=== PATIENT | male | born 1940 | race Caucasian/White ===

== ENCOUNTER 2018-02-01 18:00 | Observation (INO) | payer OTHER, MEDICARE ==
[~2018-02-01] VITALS: Ht 172.7 cm; Wt 73.6 kg
--- NOTE | 2018-02-01 18:24 | ED GENERAL ADULT ---
History of Present Illness General Chief Complaint: Male Genitourinary Problems Stated Complaint: BIBA CONSTIPATION AND URINARY RETENTION Source: patient Exam Limitations: poor historian Vital Signs & Intake/Output Vital Signs & Intake/Output Vital Signs Date Time Temp Pulse Resp B/P B/P Pulse O2 O2 Flow FiO2 Mean Ox Delivery Rate 02/02 0134 99.0 72 20 108/56 92 Room Air 02/02 0112 97.2 74 20 104/57 97 Room Air 02/01 2342 97 Room Air 02/01 2341 98.7 72 22 96/54 96 Room Air 02/01 2233 76 24 110/55 99 Room Air 02/01 2212 98.1 77 20 97/56 97 Room Air 02/01 2207 97.7 02/01 1840 97.7 91 22 109/66 98 Room Air 02/01/18 77-year-old male presents to the emergency department for acute urinary retention. The patient states that he has a history of BPH and also has a hemorrhoid. He was drinking lots of fluids to alleviate his constipation and he went into acute urinary retention. Now he has severe abdominal distention and is unable to pass urine for the past 12 hours. A coud catheter was paged by the ED nursing staff, and revealed 600 mL of urine. He continued to have some discomfort but had substantial relief of his pain. Allergies Coded Allergies: No Known Allergies (03/25/16) Reconcile Medications Ascorbic Acid (Vitamin C) 500 MG CAPSULE 1 CAP PO QAM SUPPLEMENT (Reported) Aspirin (Ecotrin*) 81 MG TABLET.DR 1 TAB PO QPM HEART/BLOOD (Reported) Atorvastatin Calcium (Lipitor) 20 MG TABLET 1 TAB PO QPM CHOLESTEROL ( Reported) Calcium Citrate/Vitamin D3 (Calcium Citrate-Vit D3 Tablet) 315 MG-250 UNIT TABLET 2 TAB PO QAM SUPPLEMENT (Reported) Cholecalciferol (Vitamin D3) (Vitamin D) 1,000 UNIT TABLET 1 TAB PO QAM SUPPLEMENT (Reported) Cinnamon Bark (Cinnamon) 500 MG CAPSULE 1 CAP PO QAM SUPPLEMENT (Reported) Cyanocobalamin (Vitamin B-12) 1,000 MCG TABLET 1 TAB PO QAM SUPPLEMENT ( Reported) Fluticasone/Vilanterol (Breo Ellipta 200-25 Mcg INH) 200 MCG-25 MCG/DOSE BLST.W.DEV 1 PUFF INH QAM COPD/ASTHMA (Reported) Folic Acid 0.4 MG TABLET 1 TAB PO QAM SUPPLEMENT (Reported) Gluc 2KCL/Chondr/Abbie Hy/Hy AC (Glucosamine & Chondroitin Cap) (Unknown Strength ) CAPSULE (Unknown Dose) PO QAM SUPPLEMENT (Reported) Lactobacillus Acidophilus (Probiotic) (Unknown Strength) CAPSULE (Unknown Dose ) PO QAM SUPPLEMENT (Reported) Levetiracetam (Keppra) 750 MG TABLET 1 TAB PO BID SEIZURES (Reported) Loperamide HCl (Imodium A-D) 2 MG TABLET 1 TAB PO QAM GI (Reported) Magnesium Oxide (Magnesium) 400 MG CAPSULE 1 CAP PO QAM SUPPLEMENT (Reported) Metoprolol Succ XL (Toprol XL) 25 MG TAB 0.5 TAB PO DAILY HEART/BP (Reported) Multiple Vitamin (Multivitamins) 1 EACH TABLET 1 TAB PO QAM SUPPLEMENT ( Reported) [place]-3/Dha/Epa/Fish Oil (Fish Oil 1,400 MG Softgel) 900 MG (253 MG-647 MG)-1, 400 MG CAPSULE.DR 1 SGL PO QAM SUPPLEMENT (Reported) Rivaroxaban (Xarelto) 20 MG TABLET 1 TAB PO QAM BLOOD THINNER (Reported) with food Tamsulosin HCl (Flomax) 0.4 MG CAP.ER.24H 1 CAP PO QPM (Reported) Ubidecarenone (Co Q-10) (Unknown Strength) CAPSULE (Unknown Dose) PO QAM SUPPLEMENT (Reported) Vitamin B Complex/Folic Acid (Vitamin B-50 Complex Tablet) (Unknown Strength) TABLET (Unknown Dose) PO QAM SUPPLEMENT (Reported) Triage Nurses Notes Reviewed? yes Onset: Abrupt Duration: hour(s): Timing: recent history HPI: 02/01/18 77-year-old male presents to the emergency department for acute urinary retention. The patient states that he has a history of BPH and also has a hemorrhoid. He was drinking lots of fluids to alleviate his constipation and he went into acute urinary retention. Now he has severe suprapubic abdominal pain and distention and is unable to pass urine for the past several hours. A coud catheter was paged by the ED nursing staff, and revealed 600 mL of urine. He continued to have some discomfort but had substantial relief of his pain. (Rudy Coronel DO) Past History Medical History Any Pertinent Medical History? 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 No (Rudy Coronel DO) Review of Systems Review of Systems Constitutional: Denies: fever. EENTM: Reports: no symptoms. Respiratory: Denies: short of breath. Cardiovascular: Denies: chest pain. GI: Reports: abdominal pain. Denies: vomiting. Genitourinary: Reports: no symptoms. Musculoskeletal: Reports: no symptoms. Skin: Reports: no symptoms. Neurological/Psychological: Reports: no symptoms. Hematologic/Endocrine: Reports: no symptoms. Immunologic/Allergic: Reports: no symptoms. (Rudy Coronel DO) Physical Exam Physical Exam General Appearance: well developed/nourished, alert, awake, anxious Head: atraumatic Eyes: Bilateral: normal appearance, PERRL, EOMI. Ears, Nose, Throat: normal pharynx, normal ENT inspection Neck: normal inspection, supple Respiratory: normal breath sounds Cardiovascular: regular rate/rhythm Peripheral Pulses: 4+ radial (R), 4+ radial (L) Gastrointestinal: soft, tenderness (suprapubic) Rectal: hemorrhoids, tenderness, excoriations in the perirectal area, brown stool, significant school but no impaction. Back: normal range of motion Extremities: no edema Neurologic/Psych: no motor/sensory deficits, awake, alert, oriented x 3 Skin: intact, normal color, warm/dry Core Measures ACS in differential dx? No CVA/TIA Diagnosis: No Sepsis Present: No Sepsis Focused Exam Completed? No (Rudy Coronel DO) Progress Differential Diagnoses I considered the following diagnoses in my evaluation of the patient: [Urinary retention, bowel obstruction,] Plan of Care: Orders Procedure Date/time Status Full Liquid Diet 02/02 B Active CBC WITHOUT DIFFERENTIAL 02/02 06 Active BASIC ELECTROLYTES PLUS BUN&CR 02/02 0600 Active Vital Signs 02/02 138 Active Teach/Educate 02/02 138 Active Seizure Precautions 02/02 138 Active Pain Treatment and Response 02/02 138 Active Nutritional Intake, Monitor 09/14 0138 Active Isolation 09/14 0138 Active Intake & Output 02/02 0138 Active Patient Care Conference 02/02 0138 Active Activity/Ambulation 02/02 0138 Active Saline Lock 02/02 0118 Active Pathway - chart 02/02 0118 Active House Staff 02/02 0118 Active Code Status 02/02 0118 Active VTE Mechanical Prophylaxis 02/02 UNK Active Vital Signs 02/02 UNK Complete Intake & Output 02/02 UNK Complete Hemoccult 02/02 UNK Active Heat/Cold Therapy 02/02 UNK Active Enema 02/02 UNK Active Activity/Ambulation 02/02 UNK Active Patient Data 02/01 2331 Active OXYGEN SETUP (GEN) 02/01 224 Active Saline Lock 02/[address] in observation 02/01 2247 Active Vital Signs 02/01 2247 Active Activity/Ambulation 02/01 224 Complete Code Status 02/01 2247 Complete Intake & Output 02/01 1924 Active [place], Insertion/Removal/Asses 02/01 1825 Active CULTURE,URINE 02/01 1825 Active URINALYSIS 02/01 1825 Complete COMPREHENSIVE METABOLIC PANEL 02/01 1825 Complete CBC WITHOUT DIFFERENTIAL 02/01 1825 Complete Current Medications Sig/Chelle Start time Last Medication Dose Stop Time Status Admin Bisacodyl 10 MG Q12P PRN 02/02 0145 UNVr (Dulcolax Supp) Lidocaine 1 PAT Q24H 02/02 0130 UNVr (Lidoderm) Polyethylene Glycol 17 GM AT BEDTIME 02/02 0130 UNVr (Miralax) Senna/Docusate Sodium 2 TAB AT BEDTIME 02/02 0130 UNVr (Senokot S) Acetaminophen 650 MG Q6P PRN 02/02 0115 UNVr (Tylenol) Acetaminophen 1,000 MG Q6P PRN 02/02 0115 UNVr (Ofirmev) Sodium Chloride 1,000 ML .Q8H 02/02 0115 UNVr (Normal Saline 0.9%) Sodium Chloride 1,000 ML ONCE ONE 02/01 2145 AC 02/01 (Normal Saline 0.9%) 02/02 0424 2203 Laboratory Tests 02/01/18 1848: Anion Gap 11, Estimated GFR > 60, BUN/Creatinine Ratio 22.9, Glucose 95, Calcium 8.8, Total Bilirubin 0.8, AST 28, ALT 38, Alkaline Phosphatase 90, Total Protein 6.8, Albumin 3.9, Globulin 2.9, Albumin/Globulin Ratio 1.3, CBC w Diff NO MAN DIFF REQ, RBC 4.80, MCV 89.2, MCH 30.1, MCHC 33.8, RDW 13.8, MPV 8.0, Gran % 88.8 H, Lymphocytes % 7.9 L, Monocytes % 3.0, Eosinophils % 0.1, Basophils % 0.2, Absolute Granulocytes 13.5 H, Absolute Lymphocytes 1.2, Absolute Monocytes 0.4, Absolute Eosinophils 0, Absolute Basophils 0 02/01/18 1840: Urinalysis LIGHT H, Urine Color YEL, Urine Clarity HAZY H, Urine pH 6.0, Ur Specific [place] >= 1.030, Urine Protein TRACE H, Urine Ketones NEG, Urine Nitrite NEG, Urine Bilirubin NEG, Urine Urobilinogen 0.2, Ur Leukocyte Esterase NEG, Ur Microscopic SEDIMENT EXAMINED, Urine RBC >75 H, Urine WBC 1-3 H, Ur Epithelial Cells RARE, Urine Bacteria MOD H, Hyaline Casts 1-3 H, Urine Mucus FEW, Urine Hemoglobin MOD H, Urine Glucose NEG Microbiology 02/02 1840 URINE ROUT: Urine Culture - RECD Initial ED EKG: none (Rudy Coronel DO) Diagnostic Imaging: Viewed by Me: CT Scan. Discussed w/RAD: CT Scan. Radiology Impression: Moderate to large amount of stool within the sigmoid colon and rectum. Diverticulosis without evidence of diverticulitis. Comments: Continued suprapubic and back pain. Little relief from placement of gognora catheter with gross hematuria. (Beverly JACOBSON,Jesus) Departure Departure Disposition: STILL A PATIENT Condition: Stable Referrals: Nam JACOBSON,Nolberto Padilla (PCP/Family) Departure Forms: Customer Survey General Discharge Information Comments Labs were ordered and a CT scan of the abdomen and pelvis. The patient was signed out to Dr. Paul at 7 pm (Rudy Coronel DO) Departure Clinical Impression Primary Impression: Urinary retention Secondary Impressions: Abdominal pain, Hemorrhoids, Obstipation, Prostatitis Observation Note Spoke With: Dylon Reed MD Physician Advisor Notified: ARRON JACOBSON,JEN S[facility] Place Patient In: Non-ED OBS Care Area Rationale for Observation: My rational for observation is as follows IV analgesia IV fluids IV antibiotics urology evaluation medication adjustment continuing care discharge planning. (Beverly JACOBSON,Jesus) Critical Care Note Critical Care Note Critical Care Time: 30-74 min (Rudy Coronel DO)
[2018-02-01 18:57] LABS: ABSOLUTE BASOPHIL COUNT 0 /CUMM (0.0-0.2); ABSOLUTE EOSINOPHIL COUNT 0 /CUMM (0.0-0.7); ABSOLUTE GRANULOCYTE CT 13.5 /CUMM (1.4-6.5); ABSOLUTE LYMPH COUNT 1.2 /CUMM (1.2-3.4); ABSOLUTE MONOCYTE COUNT 0.4 /CUMM (0.10-0.60); BASOPHIL % 0.2 % (0.0-2.0); EOSINOPHIL % 0.1 % (0-5); GRANULOCYTE % 88.8 % (42.2-75.2); HEMATOCRIT 42.8 % (42-52); MEAN CORPUSCULAR HGB 30.1 PG (27.0-31.0); MEAN CORPUSCULAR HGB CONC 33.8 G/DL (33.0-37.0); MEAN CORPUSCULAR VOLUME 89.2 FL (80.0-94.0); PLATELET COUNT 209 /CUMM (130-400); RBC DISTRIBUTION WIDTH 13.8 % (11.5-14.5); WHITE BLOOD CELL COUNT 15.1 /CUMM (4.8-10.8)
[2018-02-01] MEDS ORDERED: ASPIRIN EC81 M1 PO (19:27)
[2018-02-01] MEDS ORDERED: LIPITOR20 M2 PO (19:28)
[2018-02-01] MEDS ORDERED: BREO ELLIPTA 21 EACH INH (19:28)
[2018-02-01] MEDS ORDERED: IMODIUM A-D2 M1 PO (19:29)
[2018-02-01] MEDS ORDERED: KEPPRA750 M1 PO (19:29)
[2018-02-01] MEDS ORDERED: TOPROL XL25 M1 PO (19:29)
[2018-02-01] MEDS ORDERED: FLOMAX0.4 M1 PO (19:30)
[2018-02-01] MEDS ORDERED: XARELTO20 M2 PO (19:30)
[2018-02-01] MEDS ORDERED: CINNAMON500 M1 PO (19:31)
[2018-02-01] MEDS ORDERED: FOLIC ACID0.4 M1 PO (19:31)
[2018-02-01] MEDS ORDERED: GLUCOSAMINE &1 EAC1 PO (19:31)
[2018-02-01] MEDS ORDERED: MULTIVITAMINS1 EAC9 PO (19:32)
[2018-02-01] MEDS ORDERED: MULTI-VITAMIN1 EACH PO (19:32)
[2018-02-01] MEDS ORDERED: VITAMIN B-50 C0.4 MG PO (19:33)
[2018-02-01] MEDS ORDERED: PROBIOTIC1 EACH PO (19:34)
[2018-02-01] MEDS ORDERED: CO Q-10400 MG PO (19:34)
[2018-02-01] MEDS ORDERED: VITAMIN C500 M9 PO (19:35)
[2018-02-01] MEDS ORDERED: VITAMIN B-121000 MC3 PO (19:35)
[2018-02-01] MEDS ORDERED: FISH OIL 1,4001 EACH PO (19:36)
[2018-02-01] MEDS ORDERED: VITAMIN D1000 UNIT PO (19:36)
[2018-02-01] MEDS ORDERED: MAGNESIUM400 M1 PO (19:37)
[2018-02-01] MEDS ORDERED: CALCIUM CITRAT1 EAC5 PO (19:38)
--- NOTE | 2018-02-01 22:26 | CT SCAN REPORT ---
EXAMINATION: CT ABDOMEN AND PELVIS WITH CONTRAST CLINICAL INFORMATION: Abdominal pain. Urinary retention. COMPARISON: None. TECHNIQUE: Contiguous axial thin section helical images of the abdomen and pelvis were performed following the administration of 95 mL of intravenous Optiray 320. The data set was reformatted in the coronal and sagittal planes and reviewed on an independent workstation. DLP: 337 mGy-cm. FINDINGS: There is dependent bibasilar atelectasis. There is bilateral lower lobe, right middle lobe and lingular bronchiectasis with mild bronchial wall thickening. There are no consolidations within the visualized lung bases. The visualized portions of the heart are unremarkable. The liver is of normal size and attenuation without focal lesions nor intrahepatic biliary ductal dilation. Patient status post cholecystectomy. Surgical clips are identified. The spleen, pancreas, adrenal glands are unremarkable. Both kidneys are of normal size and attenuation without hydronephrosis or nephrolithiasis. Following the administration of IV contrast, prompt symmetric nephrograms are displayed. There is no abdominal free fluid. There is neither mesenteric nor retroperitoneal lymphadenopathy. There is a moderate amount of stool within the sigmoid colon and rectum. There is diverticulosis without evidence of diverticulitis; otherwise, unremarkable unopacified loops of small and large bowel are identified. There is no pelvic free fluid. The urinary bladder is partially filled and unremarkable. There is neither pelvic nor inguinal lymphadenopathy. Bone windows: Neither sclerotic nor lytic bone lesions are identified. IMPRESSION: Moderate to large amount of stool within the sigmoid colon and rectum. Diverticulosis without evidence of diverticulitis.
--- NOTE | 2018-02-01 23:31 | History & Physical ---
Jaun Cheng 02/01/18 1957: General Information and HPI MD Statement: I have seen and personally examined KALPANA RUDOLPH and documented this H&P. The patient is a 77 year old M who presented with a patient stated chief complaint of [constipation and couldn't pee]. Source of Information: patient, family Exam Limitations: no limitations History of Present Illness: 77 year old male with PMH of BPH, hemorrhoids, atrial fibrillation on Xarelto at home, Asthma and COPD, and Hyperlipidemia presented with lower abdominal pain due to inability to urinate and constipation. The patient first felt constipated early on the day of admission, and attempted to take stool softeners, and loosen impacted stool manually, with no resolution of his symptoms. He also realized he was unable to urinate throughout the day, took an extra dose of Flomax that did not help, and as the day went on he developed increasing lower abdominal and back pain until he went to the emergency department. Prior to this, his most recent bowel movement was the day before admission and he normally has bowel movements daily, with daily use of imodium to minimize loose stools. He did endorse nausea, but denied vomiting, had not noticed any blood in his stool recently. Allergies/Medications Allergies: Coded Allergies: No Known Allergies (03/25/16) Home Med list Ascorbic Acid (Vitamin C) 500 MG CAPSULE 1 CAP PO QAM SUPPLEMENT (Reported) Aspirin (Ecotrin*) 81 MG TABLET.DR 1 TAB PO QPM HEART/BLOOD (Reported) Atorvastatin Calcium (Lipitor) 20 MG TABLET 1 TAB PO QPM CHOLESTEROL ( Reported) Calcium Citrate/Vitamin D3 (Calcium Citrate-Vit D3 Tablet) 315 MG-250 UNIT TABLET 2 TAB PO QAM SUPPLEMENT (Reported) Cholecalciferol (Vitamin D3) (Vitamin D) 1,000 UNIT TABLET 1 TAB PO QAM SUPPLEMENT (Reported) Cinnamon Bark (Cinnamon) 500 MG CAPSULE 1 CAP PO QAM SUPPLEMENT (Reported) Cyanocobalamin (Vitamin B-12) 1,000 MCG TABLET 1 TAB PO QAM SUPPLEMENT ( Reported) Fluticasone/Vilanterol (Breo Ellipta 200-25 Mcg INH) 200 MCG-25 MCG/DOSE BLST.W.DEV 1 PUFF INH QAM COPD/ASTHMA (Reported) Folic Acid 0.4 MG TABLET 1 TAB PO QAM SUPPLEMENT (Reported) Gluc 2KCL/Chondr/Abbie Hy/Hy AC (Glucosamine & Chondroitin Cap) (Unknown Strength ) CAPSULE (Unknown Dose) PO QAM SUPPLEMENT (Reported) Lactobacillus Acidophilus (Probiotic) (Unknown Strength) CAPSULE (Unknown Dose ) PO QAM SUPPLEMENT (Reported) Levetiracetam (Keppra) 750 MG TABLET 1 TAB PO BID SEIZURES (Reported) Loperamide HCl (Imodium A-D) 2 MG TABLET 1 TAB PO QAM GI (Reported) Magnesium Oxide (Magnesium) 400 MG CAPSULE 1 CAP PO QAM SUPPLEMENT (Reported) Metoprolol Succ XL (Toprol XL) 25 MG TAB 0.5 TAB PO DAILY HEART/BP (Reported) Multiple Vitamin (Multivitamins) 1 EACH TABLET 1 TAB PO QAM SUPPLEMENT ( Reported) [place]-3/Dha/Epa/Fish Oil (Fish Oil 1,400 MG Softgel) 900 MG (253 MG-647 MG)-1, 400 MG CAPSULE.DR 1 SGL PO QAM SUPPLEMENT (Reported) Rivaroxaban (Xarelto) 20 MG TABLET 1 TAB PO QAM BLOOD THINNER (Reported) with food Tamsulosin HCl (Flomax) 0.4 MG CAP.ER.24H 1 CAP PO QPM (Reported) Ubidecarenone (Co Q-10) (Unknown Strength) CAPSULE (Unknown Dose) PO QAM SUPPLEMENT (Reported) Vitamin B Complex/Folic Acid (Vitamin B-50 Complex Tablet) (Unknown Strength) TABLET (Unknown Dose) PO QAM SUPPLEMENT (Reported) Compliance With Home Meds: GOOD Past History Travel History Traveled to [place] past 21 day No Medical History Neurological: seizure EENT: NONE Cardiovascular: AFIB, hyperlipidemia, BLOCKED ARTERY Respiratory: asthma, bronchitis, COPD Gastrointestinal: NONE Hepatic: cholelithiasis Renal: ENLARGED PROSTATE Musculoskeletal: osteoarthritis, L ARM FX Psychiatric: NONE Endocrine: NONE Blood Disorders: NONE Cancer(s): 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 Cardiovascular: Denies: chest pain, edema, orthopena, palpitations. Respiratory: Denies: cough, short of breath. GI: Reports: abdominal pain, constipation, distention. Denies: bowel incontinence, bloody stool. Genitourinary: Reports: see HPI (oliguria). Exam & Diagnostic Data Last 24 Hrs of Vital Signs/I&O Vital Signs Date Time Temp Pulse Resp B/P B/P Pulse O2 O2 Flow FiO2 Mean Ox Delivery Rate 02/02 0134 99.0 72 20 108/56 92 Room Air 02/02 0112 97.2 74 20 104/57 97 Room Air 02/01 2342 97 Room Air 02/01 2341 98.7 72 22 96/54 96 Room Air 02/01 2233 76 24 110/55 99 Room Air 02/01 2212 98.1 77 20 97/56 97 Room Air 02/01 2207 97.7 02/01 1840 97.7 91 22 109/66 98 Room Air Intake & Output 02/02 0800 02/02 0000 02/01 1600 Intake Total Output Total 1850 Balance -1850 Output, Urine 1850 Patient 73.624 kg Weight Physical Exam General Appearance Alert, Oriented X3, Cooperative, No Acute Distress HEENT Atraumatic, PERRLA, EOMI Cardiovascular Regular Rate, Normal S1, Normal S2 Lungs Clear to Auscultation, Normal Air Movement Abdomen Normal Bowel Sounds, Soft, No Tenderness, Distension Extremities No Clubbing, No Cyanosis, No Edema Last 24 Hrs of Labs/Andrew: Laboratory Tests 02/01/181847: Anion Gap 11, Estimated GFR > 60, BUN/Creatinine Ratio 22.9, Glucose 95, Calcium 8.8, Total Bilirubin 0.8, AST 28, ALT 38, Alkaline Phosphatase 90, Total Protein 6.8, Albumin 3.9, Globulin 2.9, Albumin/Globulin Ratio 1.3, CBC w Diff NO MAN DIFF REQ, RBC 4.80, MCV 89.2, MCH 30.1, MCHC 33.8, RDW 13.8, MPV 8.0, Gran % 88.8 H, Lymphocytes % 7.9 L, Monocytes % 3.0, Eosinophils % 0.1, Basophils % 0.2, Absolute Granulocytes 13.5 H, Absolute Lymphocytes 1.2, Absolute Monocytes 0.4, Absolute Eosinophils 0, Absolute Basophils 0 02/01/181839: Urinalysis LIGHT H, Urine Color YEL, Urine Clarity HAZY H, Urine pH 6.0, Ur Specific [place] >= 1.030, Urine Protein TRACE H, Urine Ketones NEG, Urine Nitrite NEG, Urine Bilirubin NEG, Urine Urobilinogen 0.2, Ur Leukocyte Esterase NEG, Ur Microscopic SEDIMENT EXAMINED, Urine RBC >75 H, Urine WBC 1-3 H, Ur Epithelial Cells RARE, Urine Bacteria MOD H, Hyaline Casts 1-3 H, Urine Mucus FEW, Urine Hemoglobin MOD H, Urine Glucose NEG Microbiology 02/01 1840 URINE ROUT: Urine Culture - RECD Assessment/Plan Assessment: 77 year old male with history of BPH being seen for constipation and urinary retention. The patient was catheterized in the ED and 600mL of urine was drained. CT Abdomen/Pelvis showed moderate to large amount of stool within the sigmoid colon and rectum, as well as diverticulosis without evidence of diverticulitis. Problems: 1. Constipation 2. Urinary retention 3. BPH 4. History of A-fib on Xarelto Plan: -Patient to be placed in observation on general medicine floor -Urology consultation for the AM -Start IV NS at 125mL/hr, keep catheter in place and draining -Begin bowel regimen--Senna S, Miralax, Dulcolax Full Code ALPS DVT ppx Full liquid diet As Ranked By This Provider Problem List: 1. Abdominal pain 2. Urinary retention 3. Hemorrhoids 4. BPH (benign prostatic hyperplasia) 5. COPD with asthma 6. Atrial fibrillation 7. Constipation Core Measures/Misc (02/05) Acute Coronary Syndrome ACS Diagnosis: No Congestive Heart Failure Congestive Heart Failure Diagnosis No Cerebrovascular Accident CVA/TIA Diagnosis: No VTE (View Protocol) VTE Risk Factors Age>40 No Mechanical VTE Prophylaxis d/t N/A MechProphylax Ordered No VTE Pharm Prophylaxis d/t Medical Contraindication (hematuria s/p cathether place) Sepsis (View protocol) Sepsis Present: No If YES complete Sepsis Event Note If YES complete Sepsis Event Note Dylon Reed MD 02/02/18 0353: Core Measures/Misc (02/05) Sepsis (View protocol) If YES complete Sepsis Event Note If YES complete Sepsis Event Note Attending MD Review Statement Attending Statement Attending MD Statement: examined this patient, discuss w/resident/PA/RAILROAD TRACK INSPECTOR, agreed w/resident/PA/RAILROAD TRACK INSPECTOR, discussed with family, reviewed EMR data (avail), discussed with nursing, amended to note Attending Assessment/Plan: 77-year-old male with history of seizure disorder on Keppra, atrial fibrillation on anticoagulation with Xarelto, BPH. Was the usual state of health until he suddenly developed significant difficulty urinating. He admits to chronic history of prostatism with straining to void poor urinary stream however he has always been able to pass urine. The symptoms started It Extremely Difficult to Pass Urine and Complained of Significant Groin Pain. He Also Complained of Difficulty Moving His Bowels. He Does Admit to History of Constipation on and off. He Was Brought to the ER for Evaluation Where Johns Catheter Was Placed on the Medicaid Drained about 600 ML of Urine. He Is Afebrile and Hemodynamically Stable. Recently Revealed Leukocytosis of 15,000. He Was Started on IV Antibiotic Therapy by the ER for Presumed Prostatitis Referred to the General Medical Service for Further Management. Review any lab repeated that he is significantly hyponatremic with sodium level of 128. Other electrolyte within normal limits. Urinalysis shows trace protein with 1-3 white blood cells. No leukoesterase on nitrates. Significant rbc's noted likely from traumatic Johns placement. On examination he is in significant distress complaining of groin pain and chronic back pain. Heart sounds are regular. Lungs are clear bilaterally. Abdomen is nondistended soft tender in the lower abdomen with no rebound or guarding. No peripheral edema. Johns catheter is in place. He doesn't have any evidence of gross hematuria. Problems: 1. Acute urinary retention 2. Atrial fibrillation on anticoagulation 3. Hyponatremia 4. Constipation Plan: -Continue patient on Flomax. Begin on finasteride. Keep Johns catheter in place and obtain urology consultation. -He did receive a dose of antibiotic therapy in the ER for presumed prostatitis. Follow-up urine cultures. Follow-up with the urology service regarding need to continue antibiotic therapy. -Optimize pain control. -Continue his cardiac regimen including and cognition therapy. -Patient gives history of intentional increase fluid intake to help relieve his urinary obstruction. Check urine and serum osmolarity. Check urine lites. Repeat serum chemistry. -Begin a bowel regimen for his constipation. Jaison JACOBSON,Farnaz 02/02/18 0452: Core Measures/Misc (02/05) Sepsis (View protocol) If YES complete Sepsis Event Note If YES complete Sepsis Event Note Resident Review Statement Resident Statement: examined this patient, discussed with analysis internship, agreed with analysis internship, reviewed images, amended to note Other Findings: Patient is a 77-year-old male with past medical history of paroxysmal A. fib on several toe, BPH on Flomax, history of hemorrhoids status post surgery, seizures , hyperlipidemia, COPD and asthma presenting with chief complaint of constipation and inability to urinate. Patient reports that at approximately 5 AM on day of admission he started experiencing abdominal cramps and attempted to defecate however was unable to do so. Reports that throughout the day he tried hydrating himself in an effort to help with the constipation however was unable to have a bowel movement. In addition to this patient was unable to urinate as well and experienced some suprapubic tenderness which continued to worsen prior to coming into the ED. Patient reports in an effort to alleviate his symptoms he took an extra dose of his Flomax along with multiple stool softeners, prune juice, and suppositories. Patient reports that he has a history of hemorrhoids and was instructed by his physician to push back his hemorrhoids when needed. Patient reports that today he attempted to do so and found that he had hard stool in his rectum which she was unable to remove. The patient on evening of admission reports that the abdominal pain and back pain became intolerable and he decided to come into the ED. Of note patient reports that he was previously having multiple bowel movements while taking Metamucil which he stopped. Patient reports that along with the bowel. He had rectal pain. Patient reports that he takes Imodium 2 mg daily which has helped reduce the number of bowel movements. In the ED patient was straight cathed with initial removal of 600 mL of grossly bloody urine without clots. Patient was given 1 L normal saline boluses 2, ceftriaxone IV 1, morphine 4 mg IV 1, Tylenol 1 g IV 1, lorazepam 1 mg IV 1 Past medical history as above Past surgical history: Hemorrhoid surgery, cholecystectomy, inguinal hernia repair Social history: Lives with his , ambulates independently, active lifestye, former smoker quit 53 years ago, denies alcohol or other illicit drug use. Allergies: Valium/Demerol: hives/clots Medication: Aspirin 81 mg daily, atorvastatin 20 mg daily, 200 g 1 puff daily, Imodium 2 mg daily, Keppra 750 mg twice a day, metoprolol ER 12.5 mg daily, Flomax 0.4 mg daily, xarelto 20 mg daily, multiple herbal and vitamin supplements Patient's PCP is Dr. Nolberto Browning Cardiology: Dr. Rena Morrow Neurology: Dr. Olmos Gastroenterology: Dr. Lynn Jennings Urology: Dr. Hubbard ([facility]) Physical exam and labs/imaging as above Patient is a 77 y/o male with signficant history of BPH and on anticoagulation as well as antiplatelet therapy presenting acute urinary retention, gross hematuria and 600 cc urine output immediately after being catheterized. Patient' s CT scan shows signficant fecal content in the colon. Patient is stable for admission to [facility] for the followin. Gross hematuria and Acute Urinary Retention in setting of BPH 2. Constipation 3. Hyponatremia 4. Chronic conditions: paroxysmal A. fib on several toe, BPH on Flomax, history of hemorrhoids status post surgery, seizures, hyperlipidemia, COPD and asthma Plan: Admit to [facility] IV fluid hydration Continue to monitor for gross hematuria and clots Hold eliquis and aspirin at this time Urology consult in AM Continue flomax Started on finasteride Bowel regimen with miralax, senna, bicsodyl suppositories and tap water enema Pain control with tylenol, lidocaine patch and heat therapy for back pain Continue home medications except for anticoagulation and antiplatelet agent Patient received IV Ceftriaxone x 1 for presumed proctitis. Follow off antibiotics - follow up urine culture Repeat CBC and BEP in AM Urine osm and urine lytes DVT PPx: ALPS in setting of gross hematuria. If resolves and H/H remains stable, may resume xarelto Diet: Full liquid diet Code: Full code
[2018-02-02 01:34] VITALS: BP 108/56
[2018-02-02 06:24] VITALS: BP 100/50
--- NOTE | 2018-02-02 07:16 | PN- Housestaff ---
Sandra Vega 02/02/18 0715: Subjective Follow-up For: Urinary Retention 2/2 Acute Prostatitis Constipation Subjective: Pt seen and examined at bedside this morning. Gongora catheter in place. Patient off his xarelto for diagnosed A-fib. Afebrile overnight with some leukocytosis that is resolving. No fevers or chills overnight. Urine in bag looks much more clear with no significant hematuria appreciated. Patient on normal saline 125/ hr. Urology consulted. Review of Systems Constitutional: Denies: see HPI. Objective Last 24 Hrs of Vital Signs/I&O Vital Signs Date Time Temp Pulse Resp B/P B/P Pulse O2 O2 Flow FiO2 Mean Ox Delivery Rate 02/02 06 98.4 74 18 100/50 93 Room Air 02/02 0134 99.0 72 20 108/56 92 Room Air 02/02 0112 97.2 74 20 104/57 97 Room Air 02/01 2342 97 Room Air 02/01 2341 98.7 72 22 96/54 96 Room Air 02/01 2233 76 24 110/55 99 Room Air 02/01 2212 98.1 77 20 97/56 97 Room Air 02/01 2207 97.7 02/01 1840 97.7 91 22 109/66 98 Room Air Intake & Output 02/02 1600 02/02 0800 02/02 0000 Intake Total 760 Output Total 3400 Balance -2640 Intake, IV 400 Intake, Oral 360 Number 2 3 Bowel Movements Output, Urine 3400 Patient 162 lb Weight Physical Exam General Appearance: Alert, Oriented X3, Cooperative Skin: No Rashes HEENT: Mucous Membr. moist/pink Cardiovascular: Normal S1, Normal S2 Lungs: Clear to Auscultation, Normal Air Movement Abdomen: Normal Bowel Sounds, Soft, mild suprapubic pain to tenderness Neurological: Strength at 5/5 X4 Ext Extremities: No Edema Vascular: Normal Pulses Current Medications: Current Medications Sig/Chelle Start time Last Medication Dose Route Stop Time Status Admin Acetaminophen 650 MG Q6P PRN 02/02 115 AC PO Acetaminophen 1,000 MG Q6P PRN 02/02 115 AC IV Acetaminophen 1,000 MG ONCE ONE 02/01 2115 DC 02/01 IV 02/01 Acetaminophen 0 .STK-MED ONE 02/01 2115 DC IV Bisacodyl 10 MG Q12P PRN 02/02 0145 AC 02/02 NV 0633 Ceftriaxone Sodium 0 .STK-MED ONE 02/01 2338 DC .ROUTE Ceftriaxone Sodium 1,000 MG ONCE ONE 02/01 2245 DC 02/01 IV 02/01 2246 2335 Ciprofloxacin 500 MG BID 02/02 0938 AC PO 02/06 0937 Finasteride 5 MG DAILY 02/02 0300 AC 02/02 PO 0426 Ketorolac 0 .STK-MED ONE 02/02 0220 DC Tromethamine .ROUTE Ketorolac 30 MG ONCE ONE 02/02 0215 DC 02/02 Tromethamine IV 02/02 0216 0223 Levetiracetam 750 MG BID 02/02 0900 AC PO Lidocaine 1 PAT Q24H 02/02 0200 02/02 EXT 0432 Lidocaine 0 .STK-MED ONE 02/01 1809 DC TOP Lorazepam 1 MG ONCE ONE 02/01 2345 IL 02/01 IV 02/01 2346 2346 Lorazepam 0 .STK-MED ONE 02/01 2339 DC .ROUTE Morphine Sulfate 0 .STK-MED ONE 02/01 2339 DC .ROUTE Morphine Sulfate 0 .STK-MED ONE 02/01 2231 DC .ROUTE Morphine Sulfate 4 MG ONCE ONE 02/01 2230 DC 02/01 IV 02/01 2231 2232 Polyethylene Glycol 17 GM AT BEDTIME 02/02 0200 02/02 PO 0223 Senna/Docusate Sodium 2 TAB AT BEDTIME 02/02 0200 02/02 PO 0223 Sodium Chloride 1,000 ML .Q8H 02/02 0115 02/02 IV 0225 Sodium Chloride 1,000 ML BOLUS ONE 02/01 2245 IL 02/01 IV 02/01 2344 2240 Sodium Chloride 1,000 ML ONCE ONE 02/01 2145 IL 02/01 IV 02/02 0424 2203 Tamsulosin HCl 0.4 MG BID 02/02 2100 AC PO Last 24 Hrs of Lab/Andrew Results Last 24 Hrs of Labs/Mics: Laboratory Tests 02/02/18 0647: Anion Gap 7, Estimated GFR > 60, BUN/Creatinine Ratio 15.7, CBC w Diff NO MAN DIFF REQ, RBC 4.46 L, MCV 89.6, MCH 30.0, MCHC 33.5, RDW 13.8, MPV 9.1, Gran % 83.7 H, Lymphocytes % 9.3 L, Monocytes % 6.4, Eosinophils % 0.3, Basophils % 0.3, Absolute Granulocytes 11.2 H, Absolute Lymphocytes 1.2, Absolute Monocytes 0.9 H, Absolute Eosinophils 0, Absolute Basophils 0 02/01/181847: Anion Gap 11, Estimated GFR > 60, BUN/Creatinine Ratio 22.9, Glucose 95, Calcium 8.8, Total Bilirubin 0.8, AST 28, ALT 38, Alkaline Phosphatase 90, Total Protein 6.8, Albumin 3.9, Globulin 2.9, Albumin/Globulin Ratio 1.3, CBC w Diff NO MAN DIFF REQ, RBC 4.80, MCV 89.2, MCH 30.1, MCHC 33.8, RDW 13.8, MPV 8.0, Gran % 88.8 H, Lymphocytes % 7.9 L, Monocytes % 3.0, Eosinophils % 0.1, Basophils % 0.2, Absolute Granulocytes 13.5 H, Absolute Lymphocytes 1.2, Absolute Monocytes 0.4, Absolute Eosinophils 0, Absolute Basophils 0 02/01/181839: Urinalysis LIGHT H, Urine Color YEL, Urine Clarity HAZY H, Urine pH 6.0, Ur Specific [place] >= 1.030, Urine Protein TRACE H, Urine Ketones NEG, Urine Nitrite NEG, Urine Bilirubin NEG, Urine Urobilinogen 0.2, Ur Leukocyte Esterase NEG, Ur Microscopic SEDIMENT EXAMINED, Urine RBC >75 H, Urine WBC 1-3 H, Ur Epithelial Cells RARE, Urine Bacteria MOD H, Hyaline Casts 1-3 H, Urine Mucus FEW, Urine Hemoglobin MOD H, Urine Glucose NEG 02/01/181839: Urine Osmolality 830, Ur Random Creatinine 152.1, Ur Random Sodium 42, Ur Random Potassium 102.3, Fraction Sodium Excret 0.2 Microbiology 02/02 1840 URINE ROUT: Urine Culture - RES Assessment/Plan Assessment: Patient is a 77 y/o male with signficant history of BPH and on anticoagulation as well as antiplatelet therapy presenting acute urinary retention, gross hematuria and 600 cc urine output immediately after being catheterized. Patient' s CT scan shows signficant fecal content in the colon. Patient currently on gongora catheter. Tender rectal exam that may indicate prostatitis given leukocytosis but negative UA. Patient given one time IV ceftriaxone in ED. 02/02: Patient on OBSERVATION. Started flomax and Ciprofloxacin 500mg BID. Follow up urology recommendations. Gongora catheter in place. PROBLEM LIST: 1. Acute Urinary Retention secondary to Acute Prostatitis 2. Constipation 3. Hyponatremia 4. Chronic conditions: paroxysmal A. fib on several toe, BPH on Flomax, history of hemorrhoids status post surgery, seizures, hyperlipidemia, COPD and asthma PLAN: Acute Prostatitis Acute urinary retention on admission likely secondary to acute prostatitis. Patient has a luekocytosis although UA is negative. Tender digital exam in ER. Given 1X ceftriaxone in ED. Finasteride and Flomax started. Gongora catheter in place. * Start Ciprofloxacin 500mg BID * Normal Saline @ 125/hr * Follow up urine cultures * Urology recommendations * monitor cbc/fevers/leukocytosis Constipation Likely due to inflammed prostate gland and obstruction. Patient started on bowel regimen. Will continue to monitor. * Senna//Docusate, Ducolox * Miralax Hyponatremia 128 sodium on admisison. Patient started on normal saline 125 ml/hr. * Follow up repeat BEP resolved sodium to 134 Chronic Conditions * Xarelto on hold for patients atrial fibrillation for now Code Status : Full Code DVT PPx: ALPS in setting of gross hematuria - if resolves resume Xarelto Diet: Full Liquid Problem List: 1. Hemorrhoids 2. Prostatitis 3. BPH (benign prostatic hyperplasia) 4. Urinary retention Pain Ratin Pain Location: site of gongora Pain Goal: Pain 4 or less Pain Plan: as per pain pathway Tomorrow's Labs & Rationales: cbc bep Milton To MD 02/02/18 1239: Attending MD Review Statement Attending Statement Attending MD Statement: examined this patient, discuss w/resident/PA/AMBULATORY TECHNOLOGIST, agreed w/resident/PA/AMBULATORY TECHNOLOGIST, discussed with family, reviewed EMR data (avail), discussed with nursing, discussed with case mgmt, amended to note Attending Assessment/Plan: The patient was seen and discussed with house staff, nursing, and case management. Clinical history suggestive of BPH with acute prostatitis and subsequent outflow tract obstruction. Prostate reported to be tender. Will treat with po Cipro along with increasing dose of Tamsulosin and finasteride was already initiated. The patient has urologist in [place], however await input from urology here. Continue to hold Xarelto- urine without gross blood at present. May need temporary gongora. Sodium increased today and WBC decreasing. ADDENDUM: Urology input appreciated. As patient had tender prostate and elevated WBC on admission I would continue to treat as prostatitis at present and continue Cipro. Agree with voiding trial in morning and if significant PVR will need to be discharged with indwelling gongora and follow-up with his urologist in [place].
[2018-02-02 08:22] LABS: ABSOLUTE BASOPHIL COUNT 0 /CUMM (0.0-0.2); ABSOLUTE EOSINOPHIL COUNT 0 /CUMM (0.0-0.7); ABSOLUTE GRANULOCYTE CT 11.2 /CUMM (1.4-6.5); ABSOLUTE LYMPH COUNT 1.2 /CUMM (1.2-3.4); ABSOLUTE MONOCYTE COUNT 0.9 /CUMM (0.10-0.60); BASOPHIL % 0.3 % (0.0-2.0); EOSINOPHIL % 0.3 % (0-5); GRANULOCYTE % 83.7 % (42.2-75.2); HEMATOCRIT 39.9 % (42-52); MEAN CORPUSCULAR HGB CONC 33.5 G/DL (33.0-37.0); MEAN CORPUSCULAR VOLUME 89.6 FL (80.0-94.0); MEAN PLATELET VOLUME 9.1 FL (7.4-10.4); PLATELET COUNT 174 /CUMM (130-400); RBC DISTRIBUTION WIDTH 13.8 % (11.5-14.5); RED BLOOD CELL CT 4.46 /CUMM (4.70-6.10); WHITE BLOOD CELL COUNT 13.4 /CUMM (4.8-10.8)
[2018-02-02 14:09] VITALS: BP 110/80
--- NOTE | 2018-02-02 14:52 | Cons- Urology ---
General Information and HPI Consulting Request Date of Consult: 02/02/18 Requested By: Milton To MD Reason for Consult: urinary retention Source of Information: old records Exam Limitations: no limitations History of Present Illness: This patient presented to the ER with lower abdominal pain. He had been constipated for about 24 hours and had not voided all day. He had been taking imodium. A gongora was placed in the ER and 600 cc of urine obtained. His abdominal pain did not resolve after gongora placement. After gongora placement he developed some gross hematuria and his ASA and xarelto were held. The urine cleared. He has a long hx of lower urinary sx's including nocturia and daytime frequency. His urinary stream is variable. He is followed by Dr Brown in [place] and has had a negative prostate bx in the past. Since his admission he has been treated with laxatives and has moved his bowels. His abd pain has resolved He has a hx of BPH, on flomax, A-fib, and COPD. Allergies/Medications Allergies: Coded Allergies: No Known Allergies (03/25/16) Home Med List: Ascorbic Acid (Vitamin C) 500 MG CAPSULE 1 CAP PO QAM SUPPLEMENT (Reported) Aspirin (Ecotrin*) 81 MG TABLET.DR 1 TAB PO QPM HEART/BLOOD (Reported) Atorvastatin Calcium (Lipitor) 20 MG TABLET 1 TAB PO QPM CHOLESTEROL ( Reported) Calcium Citrate/Vitamin D3 (Calcium Citrate-Vit D3 Tablet) 315 MG-250 UNIT TABLET 2 TAB PO QAM SUPPLEMENT (Reported) Cholecalciferol (Vitamin D3) (Vitamin D) 1,000 UNIT TABLET 1 TAB PO QAM SUPPLEMENT (Reported) Cinnamon Bark (Cinnamon) 500 MG CAPSULE 1 CAP PO QAM SUPPLEMENT (Reported) Cyanocobalamin (Vitamin B-12) 1,000 MCG TABLET 1 TAB PO QAM SUPPLEMENT ( Reported) Fluticasone/Vilanterol (Breo Ellipta 200-25 Mcg INH) 200 MCG-25 MCG/DOSE BLST.W.DEV 1 PUFF INH QAM COPD/ASTHMA (Reported) Folic Acid 0.4 MG TABLET 1 TAB PO QAM SUPPLEMENT (Reported) Gluc 2KCL/Chondr/Abbie Hy/Hy AC (Glucosamine & Chondroitin Cap) 375 MG-300 MG-175 MG-2 MG CAPSULE 1 TAB PO QAM SUPPLEMENT (Reported) Lactobacillus Acidophilus (Probiotic) 10 BILLION CELL CAPSULE 1 CAP PO QAM SUPPLEMENT (Reported) Levetiracetam (Keppra) 750 MG TABLET 1 TAB PO BID SEIZURES (Reported) Loperamide HCl (Imodium A-D) 2 MG TABLET 1 TAB PO QAM GI (Reported) Magnesium Oxide (Magnesium) 400 MG CAPSULE 1 CAP PO QAM SUPPLEMENT (Reported) Metoprolol Succ XL (Toprol XL) 25 MG TAB 0.5 TAB PO DAILY HEART/BP (Reported) Multiple Vitamin (Multivitamins) 1 EACH TABLET 1 TAB PO QAM SUPPLEMENT ( Reported) [place]-3/Dha/Epa/Fish Oil (Fish Oil 1,400 MG Softgel) 900 MG (253 MG-647 MG)-1, 400 MG CAPSULE.DR 1 SGL PO QAM SUPPLEMENT (Reported) Rivaroxaban (Xarelto) 20 MG TABLET 1 TAB PO QAM BLOOD THINNER (Reported) with food Tamsulosin HCl (Flomax) 0.4 MG CAP.ER.24H 1 CAP PO QPM (Reported) Ubidecarenone (Co Q-10) 400 MG CAPSULE 1 TAB PO QAM SUPPLEMENT (Reported) Vitamin B Complex/Folic Acid (Vitamin B-50 Complex Tablet) (Unknown Strength) TABLET (Unknown Dose) PO QAM SUPPLEMENT (Reported) Current Medications: Current Medications Sig/Chelle Start time Last Medication Dose Route Stop Time Status Admin Acetaminophen 650 MG Q6P PRN 02/02 011 AC PO Acetaminophen 1,000 MG Q6P PRN 02/02 0115 AC IV Acetaminophen 1,000 MG ONCE ONE 02/01 2115 DC 02/01 IV 02/01 Acetaminophen 0 .STK-MED ONE 02/01 2115 DC IV Bisacodyl 10 MG Q12P PRN 02/02 0145 AC 02/02 [place] 0633 Ceftriaxone Sodium 0 .STK-MED ONE 02/01 2338 DC .ROUTE Ceftriaxone Sodium 1,000 MG ONCE ONE 02/01 2245 DC 02/01 IV 02/01 2246 2335 Ciprofloxacin 500 MG BID 02/02 0938 AC 02/02 PO 02/06 0937 1029 Finasteride 5 MG DAILY 02/02 0300 AC 02/02 PO 0426 Ketorolac 0 .STK-MED ONE 02/02 0220 DC Tromethamine .ROUTE Ketorolac 30 MG ONCE ONE 02/02 0215 DC 02/02 Tromethamine IV 02/02 0216 0223 Levetiracetam 750 MG BID 02/02 0900 AC 02/02 PO 1020 Lidocaine 1 PAT Q24H 02/02 0200 AC 02/02 EXT 0432 Lidocaine 0 .STK-MED ONE 02/01 1809 DC TOP Lorazepam 1 MG ONCE ONE 02/01 2345 DC 02/01 IV 02/01 2346 2346 Lorazepam 0 .STK-MED ONE 02/01 2339 DC .ROUTE Morphine Sulfate 0 .STK-MED ONE 02/01 2339 DC .ROUTE Morphine Sulfate 0 .STK-MED ONE 02/01 223 DC .ROUTE Morphine Sulfate 4 MG ONCE ONE 02/01 2230 DC 02/01 IV 02/01 223 2232 Polyethylene Glycol 17 GM AT BEDTIME 02/02 0200 AC 02/02 PO 0223 Senna/Docusate Sodium 2 TAB AT BEDTIME 02/02 0200 AC 02/02 PO 0223 Sodium Chloride 1,000 ML .Q8H 02/02 0115 AC 02/02 IV 1021 Sodium Chloride 1,000 ML BOLUS ONE 02/01 2245 DC 02/01 IV 02/01 2344 2240 Sodium Chloride 1,000 ML ONCE ONE 02/01 2145 DC 02/01 IV 02/02 0424 2203 Tamsulosin HCl 0.4 MG BID 02/02 2100 AC PO Past History Medical History Blood Transfusion Hx: No Neurological: seizure EENT: NONE Cardiovascular: AFIB, hypertension, hyperlipidemia, BLOCKED ARTERY Respiratory: asthma, bronchitis, COPD Gastrointestinal: NONE Hepatic: cholelithiasis Renal: ENLARGED PROSTATE Musculoskeletal: osteoarthritis, L ARM FX Psychiatric: NONE Endocrine: NONE Blood Disorders: NONE Cancer(s): NONE 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 Surgical History Pertinent Surgical History: 1 Psychosocial History Smoking Status: Former Smoker Exam & Diagnostic Data Vital Signs and I&O Vital Signs Date Time Temp Pulse Resp B/P B/P Pulse O2 O2 Flow FiO2 Mean Ox Delivery Rate 02/02 1409 98.5 88 18 110/80 96 Room Air 02/02 0624 98.4 74 18 100/50 93 Room Air 02/02 0134 99.0 72 20 108/56 92 Room Air 02/02 0112 97.2 74 20 104/57 97 Room Air 02/01 2342 97 Room Air 02/01 234 98.7 72 22 96/54 96 Room Air 02/01 2233 76 24 110/55 99 Room Air 02/01 2212 98.1 77 20 97/56 97 Room Air 02/01 2207 97.7 02/01 1840 97.7 91 22 109/66 98 Room Air Intake & Output 02/02 0000 02/01 0000 Intake Total 1300 760 Output Total 1999 3400 Balance -700 -2640 Intake, IV 1000 400 Intake, Oral 300 360 Number 3 3 Bowel Movements Output, Urine 1999 3400 Patient 162 lb Weight Patient comfortable Back: No CVA tenderness Abd: soft and non tender Genitalia: Normal male. Gongora in place. Draining clear urine PRABHU: Large non nodular prostate Laboratory Tests 02/02 02/01 0647 1848 Chemistry Sodium (137 - 145 mmol/L) 134 L 128 L Potassium (3.5 - 5.1 mmol/L) 4.0 4.0 Chloride (98 - 107 mmol/L) 104 95 L Carbon Dioxide (22 - 30 mmol/L) 23 22 Anion Gap (5 - 16) 7 11 BUN (9 - 20 mg/dL) 11 16 Creatinine (0.7 - 1.2 mg/dL) 0.7 0.7 Estimated GFR (>60 ml/min) > 60 > 60 BUN/Creatinine Ratio (7 - 25 %) 15.7 22.9 Glucose (65 - 99 mg/dL) 95 Calcium (8.4 - 10.2 mg/dL) 8.8 Total Bilirubin (0.2 - 1.3 mg/dL) 0.8 AST (17 - 59 U/L) 28 ALT (21 - 72 U/L) 38 Alkaline Phosphatase (< 127 U/L) 90 Total Protein (6.3 - 8.2 g/dL) 6.8 Albumin (3.5 - 5.0 g/dL) 3.9 Globulin (1.9 - 4.2 gm/dL) 2.9 Albumin/Globulin Ratio (1.1 - 2.2 %) 1.3 Hematology CBC w Diff NO MAN DIFF REQ NO MAN DIFF REQ WBC (4.8 - 10.8 /CUMM) 13.4 H 15.1 H RBC (4.70 - 6.10 /CUMM) 4.46 L 4.80 Hgb (14.0 - 18.0 G/DL) 13.4 L 14.5 Hct (42 - 52 %) 39.9 L 42.8 MCV (80.0 - 94.0 FL) 89.6 89.2 MCH (27.0 - 31.0 PG) 30.0 30.1 MCHC (33.0 - 37.0 G/DL) 33.5 33.8 RDW (11.5 - 14.5 %) 13.8 13.8 Plt Count (130 - 400 /CUMM) 174 209 MPV (7.4 - 10.4 FL) 9.1 8.0 Gran % (42.2 - 75.2 %) 83.7 H 88.8 H Lymphocytes % (20.5 - 51.1 %) 9.3 L 7.9 L Monocytes % (1.7 - 9.3 %) 6.4 3.0 Eosinophils % (0 - 5 %) 0.3 0.1 Basophils % (0.0 - 2.0 %) 0.3 0.2 Absolute Granulocytes (1.4 - 6.5 /CUMM) 11.2 H 13.5 H Absolute Lymphocytes (1.2 - 3.4 /CUMM) 1.2 1.2 Absolute Monocytes (0.10 - 0.60 /CUMM) 0.9 H 0.4 Absolute Eosinophils (0.0 - 0.7 /CUMM) 0 0 Absolute Basophils (0.0 - 0.2 /CUMM) 0 0 02/01 02/01 1840 1840 Urines Urinalysis LIGHT H Urine Color (YEL,AMB,STR) YEL Urine Clarity (CLEAR) HAZY H Urine pH (5.0 - 8.0) 6.0 Ur Specific Galliano (1.001 - 1.035) >= 1.030 Urine Protein (NEG,<30 MG/DL) TRACE H Urine Ketones (NEG) NEG Urine Nitrite (NEG) NEG Urine Bilirubin (NEG) NEG Urine Urobilinogen (0.1 - 1.0 EU/dl) 0.2 Ur Leukocyte Esterase (NEG) NEG Ur Microscopic SEDIMENT EXAMINED Urine RBC (0 - 5 /HPF) >75 H Urine WBC (0 - 2 /HPF) 1-3 H Ur Epithelial Cells (NONE,FEW) RARE Urine Bacteria (NEG/NONE) MOD H Hyaline Casts (0/LPF) 1-3 H Urine Mucus (FEW,NONE) FEW Urine Hemoglobin (NEG) MOD H Urine Osmolality (300 - 1000 MOSM/KG) 830 Ur Random Creatinine (mg/dL) 152.1 Ur Random Sodium (30 - 90 mmol/L) 42 Ur Random Potassium (mmol/L) 102.3 Fraction Sodium Excret (<1% %) 0.2 Urine Glucose (N MG/DL) NEG Assessment/Plan Assessment/Plan Imp: 1. Urinary retention likely due to BPH and constipation 2. Gross hematuria - resolved. Likely due to gongora catheterization in setting of anticoagulation Plan: 1. Now that constipation has resolved would remove gongora in AM 2. Check pvr by bladder scan at least twice tomorrow. If less than 300 cc then may discharge home on flomax 3. If pvr more than 300 cc then would reinsert gongora and he may be discharged with gongora 4. Would send urine culture if not already done 5. May restart anticoagulation 6. f/u with his usual urologist, Dr Brown, after discharge Consult Acknowledgment - Thank you for your consult request.
[2018-02-02 22:18] VITALS: BP 110/50
[2018-02-03 06:06] VITALS: BP 124/62
[2018-02-03 08:31] VITALS: BP 110/64
[2018-02-03 08:41] LABS: ABSOLUTE BASOPHIL COUNT 0 /CUMM (0.0-0.2); ABSOLUTE EOSINOPHIL COUNT 0.4 /CUMM (0.0-0.7); ABSOLUTE GRANULOCYTE CT 10.9 /CUMM (1.4-6.5); ABSOLUTE LYMPH COUNT 1.6 /CUMM (1.2-3.4); ABSOLUTE MONOCYTE COUNT 0.6 /CUMM (0.10-0.60); BASOPHIL % 0.3 % (0.0-2.0); EOSINOPHIL % 3.1 % (0-5); GRANULOCYTE % 80.5 % (42.2-75.2); HEMATOCRIT 41.2 % (42-52); MEAN CORPUSCULAR HGB 30.3 PG (27.0-31.0); MEAN CORPUSCULAR HGB CONC 33.6 G/DL (33.0-37.0); MEAN CORPUSCULAR VOLUME 90.1 FL (80.0-94.0); MEAN PLATELET VOLUME 8.4 FL (7.4-10.4); PLATELET COUNT 173 /CUMM (130-400); RBC DISTRIBUTION WIDTH 14.4 % (11.5-14.5); RED BLOOD CELL CT 4.57 /CUMM (4.70-6.10); WHITE BLOOD CELL COUNT 13.6 /CUMM (4.8-10.8)
[2018-02-03] MEDS ORDERED: CIPRO500 M1 PO (10:23)
[2018-02-03] MEDS ORDERED: FLOMAX0.4 M1 PO (10:23)
--- NOTE | 2018-02-03 11:23 | PN- Housestaff ---
Sravan Glover 02/03/18 1116: Subjective Follow-up For: BPH Constipation Urinary retention Subjective: Patient was seen and examined today. He is doing well. He thinks he is ready to go home. Discussed about his vacation plans and is planning on following up with PCP Review of Systems Constitutional: Reports: no symptoms. Objective Last 24 Hrs of Vital Signs/I&O Vital Signs Date Time Temp Pulse Resp B/P B/P Pulse O2 O2 Flow FiO2 Mean Ox Delivery Rate 02/03 0831 87 110/64 02/03 0800 96 Room Air 02/03 0606 98.3 71 20 124/62 94 Room Air 02/02 2218 98.7 67 18 110/50 94 Room Air 02/02 2026 67 110/50 02/02 1409 98.5 88 18 110/80 96 Room Air Intake & Output 02/03 1600 02/03 0800 02/03 0000 Intake Total 1000 1000 Output Total 2400 1150 Balance -1400 -150 Intake, IV 1000 1000 Number 1 Bowel Movements Output, Urine 2400 1150 Physical Exam General Appearance: Alert, Oriented X3, Cooperative, No Acute Distress Cardiovascular: Regular Rate, No Murmurs Lungs: Clear to Auscultation, Normal Air Movement Abdomen: Normal Bowel Sounds, Soft, No Tenderness, No Hepatospenomegaly, No Masses Neurological: Normal Speech, Strength at 5/5 X4 Ext, Normal Tone, Sensation Intact Extremities: No Clubbing, No Cyanosis, No Edema, Normal Pulses, No Tenderness/ Swelling Vascular: Normal Pulses Current Medications: Current Medications Sig/Chelle Start time Last Medication Dose Route Stop Time Status Admin Acetaminophen 650 MG Q6P PRN 02/02 0115 AC PO Acetaminophen 1,000 MG Q6P PRN 02/02 0115 AC IV Bisacodyl 10 MG Q12P PRN 02/02 0145 AC 02/02 [place] 0633 Ciprofloxacin 500 MG BID 02/02 09 AC 02/03 PO 02/06 0937 0831 Finasteride 5 MG DAILY 02/02 0300 AC 02/03 PO 0830 Levetiracetam 750 MG BID 02/02 0900 AC 02/03 PO 0830 Lidocaine 1 PAT Q24H 02/02 0200 AC 02/02 EXT 0432 Patient Medication 1 ED ONE ONE 02/03 2000 MA Teaching ED 02/02 2001 Polyethylene Glycol 17 GM AT BEDTIME 02/02 0200 AC 02/02 PO 2024 Rivaroxaban 20 MG DAILY 02/03 0900 AC 02/03 PO 08 Senna/Docusate Sodium 2 TAB AT BEDTIME 02/02 020 AC 02/02 PO 2025 Sodium Chloride 1,000 ML .Q8H 02/02 0115 DC 02/03 IV 0507 Tamsulosin HCl 0.4 MG BID 02/02 2100 AC 02/03 PO 0831 Last 24 Hrs of Lab/Andrew Results Last 24 Hrs of Labs/Mics: Laboratory Tests 02/03/18 0819: Anion Gap 8, Estimated GFR > 60, BUN/Creatinine Ratio 13.3, CBC w Diff NO MAN DIFF REQ, RBC 4.57 L, MCV 90.1, MCH 30.3, MCHC 33.6, RDW 14.4, MPV 8.4, Gran % 80.5 H, Lymphocytes % 11.4 L, Monocytes % 4.7, Eosinophils % 3.1, Basophils % 0.3, Absolute Granulocytes 10.9 H, Absolute Lymphocytes 1.6, Absolute Monocytes 0.6, Absolute Eosinophils 0.4, Absolute Basophils 0 Microbiology 02/03 0600 URINE ROUT: Urine Culture - COLB Assessment/Plan Assessment: Assessment: Patient is a 77 y/o male with signficant history of BPH and on anticoagulation as well as antiplatelet therapy presenting acute urinary retention, gross hematuria and 600 cc urine output immediately after being catheterized. Patient' s CT scan shows signficant fecal content in the colon. Patient currently on gongora catheter. Tender rectal exam that may indicate prostatitis given leukocytosis but negative UA. Patient given one time IV ceftriaxone in ED. 02/02: Patient on OBSERVATION. Started flomax and Ciprofloxacin 500mg BID. Follow up urology recommendations. Gongora catheter in place. PROBLEM LIST: 1. Acute Urinary Retention secondary to Acute Prostatitis 2. Constipation 3. Hyponatremia 4. Chronic conditions: paroxysmal A. fib on several toe, BPH on Flomax, history of hemorrhoids status post surgery, seizures, hyperlipidemia, COPD and asthma PLAN: Acute Prostatitis Acute urinary retention on admission likely secondary to acute prostatitis. Patient has a luekocytosis although UA is negative. Tender digital exam in ER. Given 1X ceftriaxone in ED. Finasteride and Flomax started. Gongora catheter in place. * Start Ciprofloxacin 500mg BID, patient will go home on ciprofloxacin 500 mg for 6 weeks * Normal Saline @ 125/hr * Follow up urine cultures are negative so far * Urology recommendationsto take out the Gongora, monitor PVR and reinsert the Gongora only if PVR greater than 300 cc, else discarge o ciprofloxacin Follow-up with outpatient urology after discharge * monitor cbc/fevers/leukocytosis Constipation Likely due to inflammed prostate gland and obstruction. Patient started on bowel regimen. Will continue to monitor. * Senna//Docusate, Ducolox * Miralax Hyponatremia * Follow up repeat BEP resolved sodium to 138 Chronic Conditions * Xarelto restarted FOR atrial fibrillation Code Status : Full Code DVT PPx: ALPS in setting of gross hematuria - if resolves resume Xarelto Diet: Full Liquid Problem List: 1. Prostatitis 2. Constipation Pain Ratin Pain Location: none Pain Goal: Remain pain free Pain Plan: none Tomorrow's Labs & Rationales: none Khai Lopez 02/03/18 1203: Attending MD Review Statement Attending Statement Attending MD Statement: examined this patient, discuss w/resident/PA/WILD ANIMAL CARETAKER, agreed w/resident/PA/WILD ANIMAL CARETAKER, discussed with family, reviewed EMR data (avail), discussed with nursing, discussed with case mgmt, reviewed images, amended to note Attending Assessment/Plan: Patient gongora removed and if he is able to void then he can be dsicharged in stable condition to follow up with outpatient urologist 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
== END 2018-02-03 15:06 ==
LOC: ERH 18:00 → ERHI 23:57 → 2NA 23:57 → ENRESERV 02-02 00:09 → 2NA 02-02 01:19
PROVIDERS: Emergency Medicine; Physical Medicine & Rehabilitation Pain Medicine; Student in an Organized Health Care Education/Training Program
DX: N40.0 Benign prostatic hyperplasia without lower urinary tract symptoms (principal); K59.00 Constipation, unspecified; Z79.01 Long term (current) use of anticoagulants; J45.909 Unspecified asthma, uncomplicated; J44.9 Chronic obstructive pulmonary disease, unspecified; E78.5 Hyperlipidemia, unspecified; Z79.82 Long term (current) use of aspirin; R56.9 Unspecified convulsions; M19.90 Unspecified osteoarthritis, unspecified site; R33.9 Retention of urine, unspecified; E87.1 Hypo-osmolality and hyponatremia; I48.0 Paroxysmal atrial fibrillation; N41.0 Acute prostatitis; F17.200 Nicotine dependence, unspecified, uncomplicated
CPT/HCPCS: 84133; 84300; 36415; 36592; 74177; 81001; 82436; 82570; 87086; 96361; 96374; 96375; 99291; G0378; J0131; J0696; J1885; J1953; J3490